=== PATIENT | male | born 1990 | race Caucasian/White ===

== ENCOUNTER 2018-05-12 20:49 | Emergency (ER) | payer OTHER ==
[~2018-05-12] VITALS: Ht 185.4 cm; Wt 83.9 kg
== END 2018-05-12 21:40 | disposition home or self-care (01) ==
LOC: ED 20:49
DX: S60.052A Contusion of left little finger without damage to nail, initial encounter (principal); Z88.2 Allergy status to sulfonamides; Y04.0XXA Assault by unarmed brawl or fight, initial encounter
CPT/HCPCS: 73130; 99283